=== PATIENT | male | born 1970 | race Caucasian/White ===

== ENCOUNTER 2021-10-12 11:54 | Emergency (ER) | payer MEDICAID, SELFPAY ==
[2021-10-12 11:54] VITALS: BP 141/86; PULSE 72; RESP 16; TEMP 36.2; O2SAT 99; BMI 21.7
--- NOTE | 2021-10-12 12:06 | ED.VIS.BACK ---
HPI <JIAN Lombardi - Last Filed: 10/12/21 12:13> History of Present Illness Chief Complaint: Back Narrative Narrative: 51-year-old male with no past medical history presents with low back pain. It started 1 hour ago after moving a ladder yesterday and fixing a chimney. It is worse with movement. There is no radiation into his buttocks or lower extremities. No weakness, numbness, tingling, saddle anesthesia, or bladder or bowel incontinence. No fever IV drug use. No direct trauma. He states he has had back issues in the past but does not take any medication for it. He tried aspirin yesterday with minimal relief. PFSH <JIAN Lombardi Last Filed: 10/12/21 12:13> [facility] Home Medications lidocaine 1 patch TOPICAL DAILY #7 ea 10/12/21 [Rx Last Taken Unknown] naproxen 500 mg PO BID PRN #20 tab 10/12/21 [Rx Last Taken Unknown] Allergy/AdvReac Type Severity Reaction Status Date / Time No Known Allergies Allergy Verified 10/12/21 11:56 ROS <JIAN Lombardi - Last Filed: 10/12/21 12:13> ROS ED ROS Narrative Constitutional: Negative for fever, chills, malaise. Eyes: Negative for visual change. ENT: Negative for sore throat, ear pain, rhinorrhea. CVS: Negative for palpitations, chest pain, syncope. Respiratory: Negative for shortness of breath, cough, orthopnea. GI: Negative for abdominal pain, nausea, vomiting, diarrhea, constipation, melena, hematochezia. : Negative for dysuria, hematuria or frequency. Neuro: Negative for headache, motor/sensory dysfunction. Skin: Negative for rash, abscess, or wound. Musc: Positive for back pain. Negative for joint pain, swelling, trauma. Heme: Negative for easy bruising, bleeding, lymphadenopathy. EXAM <JIAN Lombardi Last Filed: 10/12/21 12:13> Physical Exam Narrative Exam Narrative: CONST: Patient sitting in no acute distress. EYES: Normal inspection. ENT: Normal inspection, moist mucous membranes. NECK: Normal inspection. RESP: No respiratory distress, CTAB. CVS: Regular rate and rhythm, no murmur, no gallop. ABD: Soft and nontender, no guarding or rebound, nondistended. Back: Normal inspection, no CVA tenderness. No midline tenderness, reproducible tenderness over bilateral lumbar paraspinal muscles. SKIN: Color normal, no rash, warm, dry, intact. EXTREMITIES: Normal appearance, no pedal edema. 5/5 strength in bilateral hip flexion, knee flexion/extension, and DF/PF. Normal sensation to light touch. 2+ posterior tibial pulses. 2+ patellar and ankle reflexes. NEURO: Oriented x4. Normal gait. Able to walk on heels and toes. Able to squat on 1 leg bilaterally PSYCH: Normal affect. Const Vital Signs: 10/12/21 11:54 Temperature 97.2 F L Temperature Source Temporal Pulse Rate 72 Respiratory Rate 16 Blood Pressure 141/86 H Blood Pressure Mean 104 Pulse Ox 99 Oxygen Delivery Method Room Air <Dr. Dm Duarte MD - Last Filed: 10/12/21 12:15> Physical Exam Const Vital Signs: 10/12/21 11:54 Temperature 97.2 F L Temperature Source Temporal Pulse Rate 72 Respiratory Rate 16 Blood Pressure 141/86 H Blood Pressure Mean 104 Pulse Ox 99 Oxygen Delivery Method Room Air [facility] <JIAN Lombardi - Last Filed: 10/12/21 12:13> [facility] Narrative Medical decision making narrative: Patient presents with back pain after increased activity yesterday. He appears well and nontoxic. Afebrile and vital signs within normal limits. On inspection his back appears normal. He has no midline spinal tenderness but is tender over the lumbar paraspinal muscles. Abdomen soft and nontender. Lower extremity MSPs and reflexes are intact. He has a normal gait and is able to walk on his heels and toes and squat. He has no red flag symptoms concerning for cauda equina syndrome or epidural abscess. H&P are most consistent with musculoskeletal back pain and I prescribed naproxen and lidocaine patches. I recommended he follow-up with his PCP and he was discharged in stable condition. Diagnosis 1. Musculoskeletal low back pain <Dr. Dm Duarte MD - Last Filed: 10/12/21 12:15> [facility] Narrative Medical decision making narrative: Patient presents with central low back pain. Etiology is mechanical. He denies bowel bladder dysfunction. I radicular pain. No foot drop. Denies buckling of his knees going up or down steps. He applied icy hot this morning. He has not done anything else for his back pain. He has no contraindication to NSAIDs. Patient appears uncomfortable. Vital signs noted. Blood pressure slightly elevated. He does appear in discomfort. Straight leg test causes pain centrally on the right and left. There is no radicular pain. Patella and ankle reflex are 1+. EHLs intact. Able to walk on heels and toes. There is pain no patient over the lower lumbar sacral region. There is no point percussion tenderness. Movement exacerbates his pain. Patient's findings are consistent with muscular low back pain. There is no concern for herniated disc and there are no red flags for epidural abscess or discitis. Discharge Plan Triage Chief Complaint: Back ED Provider: Betsy Bello Dx/Rx/DC Orders Clinical Impression: Low back pain Instructions: ED Back Sprain/Strain Prescriptions: New naproxen 500 mg tablet 500 mg PO BID PRN Qty: 20 RF: 0 lidocaine 5 % adhesive patch,medicated 1 patch topical DAILY Qty: 7 RF: 0 Primary Care Provider: Philip Ortega Referrals: Philip Ortega [Primary Care Provider] - Activity Restrictions/Additional Instructions: Your back pain appears to be musculoskeletal. I prescribed naproxen which is an anti-inflammatory for pain and lidocaine patches to put on the area. Please follow-up with your primary care doctor. Disposition Disposition: Home, Self Care
[2021-10-12] MEDS: HYDROcodone Bitartrate/Apap 5/325 Tablet PO (12:33)
[2021-10-12] MEDS: Lidocaine 5% Patch 1 PATCH TOPICAL (12:33)
== END 2021-10-12 12:40 | disposition home or self-care (01) ==
LOC: ED 12:23
PROVIDERS: Emergency Provider Physician Assistant; Visit Provider Physician Assistant
DX: M54.50 Low back pain, unspecified (principal)
CPT/HCPCS: 99284